=== PATIENT | female | born 1945 | race Caucasian/White ===

== ENCOUNTER → 2019-12-15 | Outpatient (CLI) | payer OTHER | LOC: SJCVCIMAG 09:47 | DX: I65.23 Occlusion and stenosis of bilateral carotid arteries (principal); I25.10 Atherosclerotic heart disease of native coronary artery without angina pectoris; I10 Essential (primary) hypertension; E78.5 Hyperlipidemia, unspecified; Z86.73 Personal history of transient ischemic attack (TIA), and cerebral infarction without residual deficits ==

== ENCOUNTER → 2020-03-10 | Outpatient (CLI) | payer OTHER ==
[~2020-03-10] MED LIST: ASA81BEC PO; LIPITOR40 MG PO; LISINOPRIL2.5 MG PO; PLAVIX 75 MG TA75 MG PO; VITAMIN D350 MC2 PO; ZETIA10 MG PO
== END ==
LOC: SJCVC 10:09
DX: R07.9 Chest pain, unspecified (principal); I25.118 Atherosclerotic heart disease of native coronary artery with other forms of angina pectoris; I10 Essential (primary) hypertension; E78.5 Hyperlipidemia, unspecified; I63.9 Cerebral infarction, unspecified; I65.23 Occlusion and stenosis of bilateral carotid arteries; I35.8 Other nonrheumatic aortic valve disorders; R53.83 Other fatigue; R68.89 Other general symptoms and signs; Z82.49 Family history of ischemic heart disease and other diseases of the circulatory system; Z79.82 Long term (current) use of aspirin; Z79.899 Other long term (current) drug therapy

== ENCOUNTER 2020-03-11 13:00 | Inpatient (IN) | payer OTHER ==
[~2020-03-11] VITALS: Ht 160 cm; Wt 62.9 kg
[2020-03-11 07:40] VITALS: BP 139/64
[2020-03-11 07:42] LABS: HEMATOCRIT 37.6 % (37.0-47.0); HEMOGLOBIN 12.8 gm/dL (12.0-15.0); MCHC 34.1 g/dL (28.0-37.0); MCV 87.9 fL (80.0-100.0); RBC 4.28 mil/uL (4.20-5.00); RDW 12.9 % (10.5-14.5); WBC 6.4 thou/uL (4.0-11.0)
[2020-03-11 07:54] LABS: CALCIUM 8.6 mg/dL (8.5-10.1); CREATININE 0.9 mg/dL (0.6-1.0); POTASSIUM 3.9 mmol/L (3.5-5.1)
--- NOTE | 2020-03-11 08:23 | EKG ---
[facility] [place] [address] ELECTROCARDIOGRAM REPORT Name: YANCY,JAKUB Room #: REG [facility]..#: [id number] Admission: 03/11/20 Attend Phys: Chris Packer MD, Discharge: Date of : 47 Report #: [id number] THIS REPORT FOR: cc: Kale Watt MD, Austin T. MD Couchonnal, Luis F. MD ~ THIS REPORT FOR: //name// [facility] Test Date: 2020-03-11 Test Time: 07:24:34 Pat Name: JAKUB HAINES Department: Room: Gender: Vault Person: J : 1945 Requested By: Chris Packer Order Number: [id number] MD: Alfredo Robert Measurements Intervals [place] Rate: 75 P: 39 NM: 146 QRS: 12 QRSD: 86 T: 81 QT: 383 QTc: 428 Interpretive Statements Sinus rhythm No previous ECG available for comparison Electronically Signed On 03-11-2020 8:21:23 CDT by Alfredo Robert [email or web address] <ELECTRONICALLY SIGNED> By: Alfredo Robert MD 03/11/20 0821 3 3 MD HERB[facility] [place]
--- NOTE | 2020-03-11 11:46 | NUR ---
SHALA HERE TO SPEAK TO PT ABOUT SURGICAL PROCEDURE WITH DR JEREZ. AFTER DISCUSSION, PT AND S.O. QUESTION WHY PT SHOULD BE ADMITTED PRIOR TO SPEAKING WITH DR JEREZ. DR JEREZ IN SURGERY UNTIL MID AFTERNOON. PT WANTS TO STAY IN CV HOLDING UNTIL THEY SPEAK WITH DR JEREZ. WILL HOLD PT HERE UNTIL THEN.
--- NOTE | 2020-03-11 12:24 | 2DMMODE ---
[facility] [place] [address] 2 D/M-MODE ECHOCARDIOGRAM Name: JAKUB HAINES Room #: REG VICKIE PrinceJosi#: [id number] Admission: 03/11/20 Attend Phys: Chris Packer MD, Discharge: Date of : 47 Report #: [id number] THIS REPORT FOR: cc: Kale Watt MD, Austin T. MD Lundgren, Craig H. MD [facility] ~ APPROVED REPORT Study performed: 03/11/2020 11:06:48 EXAM: Comprehensive 2D, Doppler, and color-flow Echocardiogram Patient Location: Out-Patient Room #: CVL Status: routine BSA: 1.61 HR: 67 bpm BP: 139/64 mmHg Rhythm: NSR Other Information Study Quality: Adequate Technically limited study due to flat on back post angiogram/lung artifact. Indications Pre Op CABG, CAD. 2D Dimensions RVDd: 32.10 mm IVSd: 10.54 (7-11mm) LVOT Diam: 19.70 (18-24mm) LVDd: 41.67 mm PWd: 10.82 (7-11mm) Ascending Ao: 32.10 (22-36mm) LVDs: 25.55 (25-40mm) Aortic Root: 29.08 mm Volumes Left Atrial Volume (Systole) Single Plane 4CH: 36.08 mL Single Plane 2CH: 41.22 mL LA ESV Index: 26.00 mL/m2 Aortic Valve AoV Peak Nicola.: 2.38 m/s AO Peak Gr.: 10.06 mmHg LVOT Max P.44 mmHg AO Mean Gr.: 10.73 mmHg [facility] [address] [place] [address] 2 D/M-MODE ECHOCARDIOGRAM Name: JAKUB HAINES [facility]: [facility] [id number] Admission: 03/11/20 Attend Phys: Chris Packer, Discharge: Date of : 47 Report #: [id number] AO V2 Mean: 1.52 m/s LVOT Max V: 0.93 m/s AO V2 VTI: 58.45 cm LILLIAN Vmax: 1.19 cm2 Mitral Valve E/A Ratio: 0.9 MV Decel. Time: 243.57 ms MV E Max Nicola.: 0.86 m/s MV A Nicola.: 0.99 m/s MV PHT: 70.64 ms IVRT: 76.12 ms Pulmonary Valve PV Peak Nicola.: 0.72 m/s PV Peak Gr.: 2.09 mmHg Pulmonary Vein P Vein S: 0.65 m/s P Vein A: 0.41 m/s P Vein D: 0.43 m/s P Vein A Dur.: 100.3 msec P Vein S/D Ratio: 1.51 Tricuspid Valve TR Peak Nicola.: 2.60 m/s RAP Estimate: 5.00 mmHg TR Peak Gr.: 27.12 mmHg PA Pressure: 32.00 mmHg Left Ventricle The left ventricle is normal size. There is normal LV segmental wall motion. Borderline concentric left ventricular hypertrophy. The left ventricular systolic function is normal. The left ventricular ejection fraction is within the normal range. LVEF is 60-65%. Mild diastolic dysfunction is present (impaired relaxation pattern). Right Ventricle The right ventricle is normal size. The right ventricular systolic function is normal. Atria The left atrium size is normal. The right atrium size is normal. Aortic Valve Aortic valve leaflets are moderately thickened and calcified, trileaflet. Mild to moderate aortic stenosis. Trace aortic regurgitation. Calculated aortic valve area is 1.2 cm2 with maximum pressure gradient of 23 mmHg and mean pressure gradient of [address] [address] 2 D/M-MODE ECHOCARDIOGRAM Name: JAKUB HAINES Room #: REG CL VictorinoJosiElissaJosi#: [id number] Admission: 03/11/20 Attend Phys: Chris Packer, Discharge: Date of : 47 Report #: [id number] mmHg. Mitral Valve Mitral valve leaflets are mildly thickened and calcified. Mild mitral annular calcification. Trace to mild mitral regurgitation. No evidence of mitral valve stenosis. Tricuspid Valve The tricuspid valve is normal in structure. Trace to mild tricuspid regurgitation. Estimated PAP is 30-35mmHg. Pulmonic Valve The pulmonary valve is normal in structure. Trace pulmonic regurgitation. Great Vessels The aortic root is normal in size. The ascending aorta is normal in size. IVC is normal in size and collapses >50% with inspiration. Pericardium There is no pericardial effusion. <Conclusion> The left ventricular systolic function is normal. There is normal LV segmental wall motion. LVEF is 60-65%. Mild diastolic dysfunction Aortic valve leaflets are moderately thickened, calcified, trileaflet. Mild to moderate aortic stenosis. Trace aortic regurgitation. Calculated aortic valve area is 1.2 cm2 (Peak gradient of 23 mmHg, mean gradient of 11 mmHg). Mitral valve leaflets are mildly thickened and calcified. Mild mitral annular calcification. Trace to mild mitral regurgitation. Trace to mild tricuspid regurgitation. Estimated pulmonary artery pressure of 30-35mmHg. There is no pericardial effusion. <ELECTRONICALLY SIGNED> By: Walt Caba MD, [facility] 03/11/20 1222 122 122 Walt Caba MD, FACC /INF
[2020-03-11 14:43] LABS: BASOPHILS 0.2 % (0.0-2.0); EOSINOPHILS 0.8 % (0.0-3.0); HEMATOCRIT 39.7 % (37.0-47.0); HEMOGLOBIN 13.4 gm/dL (12.0-15.0); LYMPHOCYTES 14.7 % (24.0-44.0); MCH 29.9 pg (26.0-34.0); MCHC 33.7 g/dL (28.0-37.0); MCV 88.8 fL (80.0-100.0); MONOCYTES 10.7 % (1.0-8.0); PLATELET COUNT 286 thou/uL (150-400); POLYS 73.6 % (36.0-66.0); RBC 4.48 mil/uL (4.20-5.00); RDW 12.9 % (10.5-14.5); WBC 8.2 thou/uL (4.0-11.0)
[2020-03-11 14:56] LABS: APTT 28.7 Seconds (24.5-32.8); PROTIME 10.4 Seconds (9.3-11.4)
[2020-03-11 15:58] LABS: URINE BILIRUBIN NEGATIVE (Negative); URINE BLOOD NEGATIVE (Negative); URINE CLARITY CLEAR; URINE COLOR YELLOW; URINE GLUCOSE-RANDOM* NEGATIVE (Negative); URINE KETONES NEGATIVE (Negative); URINE LEUKOCYTES-REFLEX NEGATIVE (Negative); URINE NITRITE-REFLEX NEGATIVE (Negative); URINE PROTEIN (DIPSTICK) NEGATIVE (Negative); URINE UROBILINOGEN 0.2 E.U./dl (0.2-1.0)
[2020-03-11 17:00] VITALS: BP 166/70
--- NOTE | 2020-03-11 17:34 | NUR ---
PATIENT ADMITTED POST CATH AT 1630 - HEMOSTATIS 0930 LEG IMMOBILIZATION TIME COMPLETED. ALERT X4 FROM HOME WITH , DENIES SOB, DENIES CHEST PAIN, RIGHT GROIN SIGHT C/D/I NO INTERVENTION WITH CARDIAC CATH. DR JEREZ ROUNDED BEDSIDE WI PLANS FOR A CABG ON SATURDAY. ADMISSION ASSEMENT, HISTORY, AND EDUCATION. COMPLETED. ORRIENTED TO ROOM. CALL LIGHT AND PERSONAL ITEMS IN REACH. PT UP AB LISBET IN ROOM
--- NOTE | 2020-03-11 19:12 | HC ---
[facility] [address] CONSULTATION Name: JAKUB HAINES Room #: 200-I [facility] VICKIE PrinceJosi#: [id number] Admission: 03/11/20 Attend Phys: Chris Packer MD, Discharge: Date of : 46 Report #: [id number] THIS REPORT FOR: cc: Kale Watt MD, Austin T. MD Forman, John M. MD ~ CC: Kale Packer DATE OF SERVICE: 03/11/2020 We were asked by Dr. Packer to see the patient. HISTORY OF PRESENT ILLNESS: The patient is a 74-year-old with coronary artery disease. The patient states that her symptoms began in October with substernal discomfort. The patient originally thought that this was indigestion and she treated this with map clerk exercise prior to eating. Symptoms seem to jama for a while and then worsened, now the patient has angina with low levels of exertion. Cardiac catheterization today demonstrates a 90% proximal LAD stenosis. This does not seem to involve the circumflex and the ramus. There is also an 80% right ostial stenosis. Left ventricular function is satisfactory. PAST HISTORY: Significant for hypertension, elevated cholesterol. The patient denies diabetes. The patient states that she had a stroke in 2012 and she has taken Plavix ever since. There was no significant residual of stroke and it is not clear what caused it. Stroke was characterized by transient aphasia. Today, carotid duplex evaluation demonstrates 40-50% right carotid stenosis and 50-60% left carotid stenosis. ALLERGIES: The patient describes vomiting with morphine. MEDICATIONS: At home includes Plavix, atorvastatin, lisinopril, aspirin, vitamin D. SOCIAL HISTORY: The patient is , nonsmoker. REVIEW OF SYSTEMS: CONSTITUTIONAL: No fever, chills, weight loss. EYES: No vision change. HEENT: No headache, vertigo, nasal discharge. RESPIRATORY: Shortness of breath on exertion, no cough. [facility] [address] [place] [address] CONSULTATION Name: JAKUB HAINES Room #: 200-I [facility].#: [id number] Admission: 03/11/20 Attend Phys: Chris Packer MD, Discharge: Date of : 46 Report #: [id number] CARDIAC: Chest pain on exertion that radiates to the arm. SKIN: No rash or infection. ENDOCRINE: No goiter, no tremor. GASTROINTESTINAL: No nausea, vomiting, diarrhea. GENITOURINARY: No urgency, frequency, or blood. NEUROLOGIC: No new motor or sensory symptoms. PSYCHIATRIC: No depression, anxiety, hallucinations. MUSCULOSKELETAL: Scattered joint pain and swelling with stiffness. IMMUNOLOGIC: No lupoid rash, no rheumatoid arthritides. PHYSICAL EXAMINATION: GENERAL: The patient is lying in bed after her cardiac catheterization in apparent comfort. VITAL SIGNS: Blood pressure 125/71, heart rate 76, respiratory rate 13, afebrile. HEENT: No scleral icterus, no arcus. NECK: Bilateral cervical bruits. HEART: Rhythm regular with aortic systolic murmur radiating to the neck. ABDOMEN: Soft. No mass. No tenderness. EXTREMITIES: 2+ pulses. No clubbing, cyanosis or edema. No obvious saphenous vein problems. NEUROLOGIC: No obvious motor or sensory dysfunction. MUSCULOSKELETAL: No bone or joint asymmetry or deformity. SKIN: No rash or infection. PSYCHIATRIC: Shows insight into problem. Oriented x 3, pleasant affect. IMPRESSION: The patient has a threatening coronary anatomy with high-grade proximal LAD and right coronary stenoses. There is moderate aortic stenosis present. The risks and details of coronary bypass surgery were discussed. These include but are not limited to bleeding, infection, anesthesia risks, heart and lung problems, stroke and . Options and alternatives were reviewed. I also discussed the case with Dr. Packer. It is a privilege to participate in this challenging patient's care. Thank you for the consult. <ELECTRONICALLY SIGNED> By: Perry Addison MD 03/11/20 1912 1544 1609 Perry Addison MD /nt
[2020-03-11 21:59] VITALS: BP 145/65
[2020-03-12 00:40] VITALS: BP 136/60
[2020-03-12 01:08] LABS: GLYCOHEMOGLOBIN (HGB A1C) 5.5 % (4.8-5.6)
[2020-03-12 01:10] LABS: ALBUMIN 3.2 g/dL (3.4-5.0); CALCIUM 8.5 mg/dL (8.5-10.1); CREATININE 0.9 mg/dL (0.6-1.0); TOTAL BILIRUBIN 0.4 mg/dL (<0.1-1.0); TOTAL PROTEIN 6.3 g/dL (6.4-8.2)
[2020-03-12 04:29] VITALS: BP 147/84
--- NOTE | 2020-03-12 07:26 | NUR ---
ASSESSMENT DOCUMENTED.PT BEEN RESTING IN NO ACUTE DISTRESS.S/P CARDIAC UMESH.RIGHT GROIN W/O HEMATOMA,DRESSING CDI.PT DENIES CHEST PAIN.ON HEPARIN AND NITRO DRIP PER ORDERS.VSS.POC IS TO HAVE CABG ON SATURDAY.WILL CONTINUE TO MONITOR PER POC.
[2020-03-12 08:00] VITALS: BP 134/67
[2020-03-12 17:00] VITALS: BP 141/72
[2020-03-12 18:57] VITALS: BP 125/62
--- NOTE | 2020-03-12 19:38 | NUR ---
ASSESSMENT CHARTED. PT ALERT AND ORIENTED. VSS. DENIED HAVING CHEST PAIN. HEPARIN AND NIRTO DRIP INFUSING ORDERED. NO RESPIRATORY OR CARDIAC DISTRESS NOTED. WILL CONTINUE TO MONITOR.
[2020-03-12 23:40] VITALS: BP 129/75
[2020-03-13 04:51] VITALS: BP 122/66
--- NOTE | 2020-03-13 04:55 | NUR ---
ASSESSMENT DOCUMENTED.PT BEEN RESTING IN NO ACUTE DISTRESS.A/OX4.VSS.DENIES CHEST PAIN.REMAINS ON HEPARIN AND NITR O DRIP.PT DENIES ANY NEEDS AT THIS TIME.POC IS TO HAVE CABG ON SATURDAY.
[2020-03-13 09:20] VITALS: BP 114/60
--- NOTE | 2020-03-13 10:50 | CATHLAB ---
[facility] [place] [address] INVASIVE PROCEDURE REPORT Name: JAKUB HAINES Room #: 200-I ADM IN M.R.#: [id number] Admission: 03/12/20 Attend Phys: Chris Packer MD, Discharge: Date of : 46 Report #: [id number] THIS REPORT FOR: cc: Kale Watt MD, Austin T. MD Mancuso, Gerald M. MD [facility] ~ APPROVED REPORT Study performed: 03/11/2020 07:46:27 Patient Details Patient Status: Out-Patient Room #: The patient is a 74 year-old female Event Personnel Chris Packer Reed Man, Tierney Velez RN RN, Joshua Crisostomo RN RN, Leticia Chinchilla RTR, MARIAA Mayer, Fanta Sykes Monitor Procedures Performed Art Access - R femoral artery* Left Heart Cath w/or w/o Coronaries [id number] [facility] Aortogram Abdominal Peripheral Angio 657268 Renal Bilateral Peripheral Angiography [id number] CVRENALBIL 39619 Initial Mod Sed Same Phys/QHP Gr5y 683910 65047 Mod Sed Same Phys/QHP Ea 316925 Indication Chest pain Procedure Narrative The Right Groin^ was infiltrated with 1% Lidocaine subcutaneous anesthesia. A PINNACLE 6FR Sheath #[id number] sheath was inserted into the RFA 6F^. Coronary angiography was performed using coronary diagnostic catheters. The right coronary system was accessed and visualized with a JR4 catheter. The left coronary system was accessed and visualized with a JL4 catheter. The left ventricle was accessed and visualized with a STR PIG catheter. Left ventriculogram was performed in 30 degree projection. There was no hematoma. Intraoperative Conscious Sedation Sedation start time: 852 Case end Time: 944 Fentanyl 50 mcg Versed 1 mg [facility] [place] [address] INVASIVE PROCEDURE REPORT Name: JAKUB HAINES Room #: 200-I [facility].#: [id number] Admission: 03/12/20 Attend Phys: Chris Packer, Discharge: Date of : 46 Report #: [id number] Fluoro Time: 3.12 minutes Dose: DAP 2149.40 cGycm2 265 mGy Contrast Type and Amount: Omnipaque 125 ml Hemodynamics The aortic pressure is 129/55 mmHg with a mean of 74 mmHg. The left ventricular pressure is 157/6 mmHg with a mean of mmHg. The left ventricular end diastolic pressure is 22 mmHg. Conclusion 1. Normal left ventricular size and systolic function EF 60% #2 abdominal aortogram is mildly ectatic there is no aneurysm. #3 selective injection bilateral renal arteries revealed ostial lesion of the left renal of 40% range without dampening of the catheter right renal artery mildly diseased. #4 eccentric calcified left main moderately disease giving rise to LAD and circumflex. #4 complex subtotal ostial LAD off of left main with disease extending into the left main proximally calcified also a proximal eccentric lesion of the LAD of 80% the distal two thirds is fairly well-preserved vessel extends around the apex. #5 circumflex OM is nondominant smaller in caliber but no occlusive disease is noted the first OM appears to be more of a ramus intermedius which is preserved #6 dominant right coronary artery there is a high-grade ostial lesion of at least 80% with significant dampening of the catheter with engagement. This is otherwise a dominant and well-preserved vessel giving rise to PDA SEBASTIAN Recommendations and plan: Continue aggressive risk factor modification patient had chest pain post procedure. Relieved with sublingual and IV nitro and IV beta-asaf. No acute EKG changes. This is complex high-grade disease involving the left main LAD. Patient is transferred hemodynamically stable and currently pain-free to CCU. CV surgical consultation revascularization by bypass would be her best alternative for the left main LAD system as well as the ostial RCA stenosis <ELECTRONICALLY SIGNED> By: Chris Packer MD, FACC 03/13/20 1048 1048 1048 Chris Packer MD, FACC /INF
[2020-03-13 16:30] VITALS: BP 112/62
--- NOTE | 2020-03-13 18:30 | NUR ---
ASSESSMENT CHARTED. PT ALERT AND ORIENTED. VSS. DENIED HAVING PAIN OR DISCOMFORT. NITRO AND HEPARIN DRIP INFUSING. SCHEDULED FOR OPEN HEART IN AM. SR ON TELE. NO CONCERNS AT THIS TIME. WILL CONTINUE TO MONITOR.
[2020-03-13 19:58] VITALS: BP 122/59
[2020-03-14] VITALS (38 sets, daily range): BP systolic 84–126; BP diastolic 39–59
[2020-03-14 04:48] LABS: HEMATOCRIT 33.7 % (37.0-47.0); HEMOGLOBIN 11.6 gm/dL (12.0-15.0); MCH 30.3 pg (26.0-34.0); MCHC 34.5 g/dL (28.0-37.0); MCV 87.7 fL (80.0-100.0); RBC 3.84 mil/uL (4.20-5.00); WBC 7.3 thou/uL (4.0-11.0)
--- NOTE | 2020-03-14 04:55 | NUR ---
ASSESSMENT DOCUMENTED.PT BEEN RESTING IN NO ACUTE DISTRESS.A/OX4.VSS.PT SCHEDULED FOR CABG THIS AM.PRE-OPE CHECKLIST INTIATED WELL PREP.PT REQUESTED NOT TO SIGN THE CONSENT FORMS SINCE SHE HAS SOME QUESTIONS FOR THE DOCTOR SOLITARIO/SHALA.DENIES ANY OTHER NEEDS AT THIS TIME.NSR ON MONITOR.NO OTHER CONCERNS VOICED AT THIS TIME.WILL CONTINUES TO MONITOR PER POC.
--- NOTE | 2020-03-14 06:51 | NUR ---
PT LEFT FOR OR.REPORT GIVEN TO PUBLIC HEALTH NUTRITIONIST.NO CONCERNS VOICED AT THIS TIME.
--- NOTE | 2020-03-14 07:50 | EKG ---
[facility] Jimena [place] [facility] [place] [address] ELECTROCARDIOGRAM REPORT Name: JAKUB HAINES Room #: 200-I ADM IN M.R.#: [id number] Admission: 03/12/20 Attend Phys: Chris Packer MD, Discharge: Date of : 47 Report #: [id number] THIS REPORT FOR: cc: Kale Watt MD, Austin T. MD Lundgren, Craig H. 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
--- NOTE | 2020-03-14 07:56 | EKG ---
[facility] [place] [address] ELECTROCARDIOGRAM REPORT Name: JAKUB HAINES Room #: 200-I ADM IN M.R.#: [id number] Admission: 03/12/20 Attend Phys: Chris Packer MD, Discharge: Date of : 47 Report #: [id number] THIS REPORT FOR: cc: Kale Watt MD, Austin T. 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: Elissa VERONICA : 1945 Requested By: Trisha Rivera Order Number: [id number] MD: Walt Caba Measurements Intervals [place] Rate: 75 P: 37 HI: 146 QRS: 13 QRSD: 79 T: 74 QT: 381 QTc: 426 Interpretive Statements Sinus rhythm Poor R wave progression Compared to ECG 03/11/2020 07:24:34 No significant change was found Electronically Signed On 03-14-2020 7:54:29 CDT by Walt Caba [email or web address] <ELECTRONICALLY SIGNED> By: Walt Caba MD, [facility] 03/14/20 0754 0741 0741 Walt Caba MD, [facility] /EPI
[2020-03-14 11:33] LABS: MCH 30.4 pg (26.0-34.0)
[2020-03-14 11:42] LABS: MCV 89.1 fL (80.0-100.0); RBC 2.22 mil/uL (4.20-5.00); RDW 12.7 % (10.5-14.5); WBC 9.6 thou/uL (4.0-11.0)
[2020-03-14 11:45] LABS: HEMATOCRIT 19.8 % (37.0-47.0)
[2020-03-14 11:46] LABS: HEMOGLOBIN 6.8 gm/dL (12.0-15.0)
[2020-03-14 11:54] LABS: FIBRINOGEN 181.5 mg/dL (210-360); INR 1.5; PROTIME 15.7 Seconds (9.3-11.4)
[2020-03-14 11:56] LABS: APTT 33.1 Seconds (24.5-32.8)
[2020-03-14 12:09] LABS: POC BE -1 mmol/L (-2.0 to +3.0); POC GLUCOSE 130 mg/dL (70-99); POC HCO3 23.9 mmol/L (22.0-26.0); POC HEMOGLOBIN 6.5 g/dL (12.0-15.0); POC POTASSIUM 4.1 mmol/L (3.5-5.1); POC SODIUM 137 mmol/L (136-145); POC pCO2 37.4 mmHg (35.0-45.0); POC pH 7.414 (7.360-7.450)
[2020-03-14 12:09] LABS: POC BE 4 mmol/L (-2.0 to +3.0); POC CA IONIZED 4.9 mg/dL (4.5-5.3); POC GLUCOSE 111 mg/dL (70-99); POC HCO3 26.9 mmol/L (22.0-26.0); POC HEMOGLOBIN 10.2 g/dL (12.0-15.0); POC POTASSIUM 4.1 mmol/L (3.5-5.1); POC SODIUM 138 mmol/L (136-145); POC pCO2 34.8 mmHg (35.0-45.0); POC pH 7.496 (7.360-7.450)
[2020-03-14 12:09] LABS: POC BE 1 mmol/L (-2.0 to +3.0); POC CA IONIZED 4.7 mg/dL (4.5-5.3); POC GLUCOSE 107 mg/dL (70-99); POC HCO3 24.9 mmol/L (22.0-26.0); POC HEMOGLOBIN 9.2 g/dL (12.0-15.0); POC POTASSIUM 3.8 mmol/L (3.5-5.1); POC SODIUM 138 mmol/L (136-145); POC pCO2 33.8 mmHg (35.0-45.0); POC pH 7.475 (7.360-7.450)
[2020-03-14 12:10] LABS: POC BE 0 mmol/L (-2.0 to +3.0); POC GLUCOSE 105 mg/dL (70-99); POC HCO3 24.6 mmol/L (22.0-26.0); POC HEMOGLOBIN 7.1 g/dL (12.0-15.0); POC POTASSIUM 4.2 mmol/L (3.5-5.1); POC SODIUM 138 mmol/L (136-145); POC pCO2 36.9 mmHg (35.0-45.0); POC pH 7.432 (7.360-7.450)
[2020-03-14 12:10] LABS: POC BE -2 mmol/L (-2.0 to +3.0); POC CA IONIZED 4.4 mg/dL (4.5-5.3); POC GLUCOSE 120 mg/dL (70-99); POC HCO3 23.8 mmol/L (22.0-26.0); POC HEMOGLOBIN 6.1 g/dL (12.0-15.0); POC SODIUM 134 mmol/L (136-145); POC pCO2 47.7 mmHg (35.0-45.0); POC pH 7.307 (7.360-7.450)
[2020-03-14 12:10] LABS: POC BE -1 mmol/L (-2.0 to +3.0); POC CA IONIZED 4.3 mg/dL (4.5-5.3); POC GLUCOSE 140 mg/dL (70-99); POC HCO3 24.1 mmol/L (22.0-26.0); POC HEMOGLOBIN 6.5 g/dL (12.0-15.0); POC POTASSIUM 4.5 mmol/L (3.5-5.1); POC SODIUM 137 mmol/L (136-145); POC pCO2 42.5 mmHg (35.0-45.0); POC pH 7.361 (7.360-7.450)
[2020-03-14 12:10] LABS: POC BE -2 mmol/L (-2.0 to +3.0); POC CA IONIZED 4.6 mg/dL (4.5-5.3); POC GLUCOSE 121 mg/dL (70-99); POC HCO3 22.2 mmol/L (22.0-26.0); POC HEMOGLOBIN 7.5 g/dL (12.0-15.0); POC POTASSIUM 3.8 mmol/L (3.5-5.1); POC SODIUM 140 mmol/L (136-145); POC pCO2 32.9 mmHg (35.0-45.0); POC pH 7.437 (7.360-7.450)
[2020-03-14 13:07] LABS: HEMATOCRIT 26.7 % (37.0-47.0); MCH 29.6 pg (26.0-34.0); MCHC 33.6 g/dL (28.0-37.0); MCV 88.1 fL (80.0-100.0); RBC 3.03 mil/uL (4.20-5.00); RDW 12.9 % (10.5-14.5); WBC 12.5 thou/uL (4.0-11.0)
[2020-03-14 13:16] LABS: BE(vivo) -4.6 mmol/L (-2 to +3); HCO3 18.9 mmol/L (22.0-26.0); PCO2 29.5 mmHg (35.0-45.0); PO2 202.4 mmHg (80.0-100.0); pH 7.425 (7.360-7.450); sO2 99.4 % (92.0-98.0)
[2020-03-14 13:18] LABS: CALCIUM 7.6 mg/dL (8.5-10.1); CREATININE 0.9 mg/dL (0.6-1.0); MAGNESIUM 2.2 mg/dL (1.8-2.4)
[2020-03-14 13:22] LABS: APTT 31.8 Seconds (24.5-32.8); INR 1.2; PROTIME 12.6 Seconds (9.3-11.4)
--- NOTE | 2020-03-14 13:49 | NUR ---
RD consult received for diet instruction. CABG today, 03/14. Will address nutrition education needs once stable and out of ICU.
--- NOTE | 2020-03-14 15:01 | EKG ---
[facility] [place] [address] ELECTROCARDIOGRAM REPORT Name: JAKUB HAINES Room #: 248-P ADM IN M.R.#: [id number] Admission: 03/12/20 Attend Phys: Chris Packer MD, Discharge: Date of : 47 Report #: [id number] THIS REPORT FOR: cc: Kale Watt MD, Austin T. MD Couchonnal, Luis F. MD ~ THIS REPORT FOR: //name// [facility] Test Date: 2020-03-14 Test Time: 13:55:18 Pat Name: JAKUB HAINES Department: Room: 248 P Gender: F Clinic Licensed Practical Nurse: Victorino WEAVER : 1945 Requested By: Esteban Collado Order Number: [id number] MD: Alfredo Robert Measurements Intervals [place] Rate: 95 P: 79 [place]: 162 QRS: 35 QRSD: 79 T: 52 QT: 378 QTc: 475 Interpretive Statements Sinus rhythm Abnormal R-wave progression, early transition Minimal ST depression, anterolateral leads Compared to ECG 03/12/2020 07:41:15 Electronically Signed On 03-14-2020 14:59:51 CDT by Alfredo Robert [email or web address] <ELECTRONICALLY SIGNED> By: Alfredo Robert MD 03/14/20 1459 1355 1355 Alfredo Robert MD /EPI
--- NOTE | 2020-03-14 16:44 | NUR ---
PATIENT ARRIVED INTO ICU ROOM 248 AT 1245 POST CABG X2. ACCOMPANIED BY OR STAFF, ANESTHESIOLOGIST AND SURGEON. ATTACHED TO HEALTHCARE ECONOMICS CONSULTANT AND VIGILANT MONITOR, CT DRAINAGE AND URINE OUTPUT NOTED. PLEURAVAC TO SUCTION WITH SMALL LEAK NOTED. BEIR HUGGER APPLIED. PROPOFOL INFUSING FOR VENT MANAGEMENT AT 20 MCG/KG/MIN.
[2020-03-14 16:53] LABS: BE(vivo) -5.4 mmol/L (-2 to +3); HCO3 19.1 mmol/L (22.0-26.0); PCO2 33.4 mmHg (35.0-45.0); PO2 130.5 mmHg (80.0-100.0); pH 7.375 (7.360-7.450); sO2 98.6 % (92.0-98.0)
--- NOTE | 2020-03-14 17:15 | NUR ---
PROPOFAL WEANED OFF AT 1535. PATIENT AWAKE AND RESPONSIVE AND FOLLOWING SIMPLE COMMANDS APPROPIATELY AT 1600. PLACED ON CPAP 40% AT 1610. ABG'S AND WEANING PARAMATERS CALLED TO DR JEREZ AT 1705, PATIENT HAD STABLE VS AND MONITOR SHOWING NSR. PATIENT EXTUBATED TO 40% FS AT 1710.
[2020-03-14 19:04] LABS: BE(vivo) -5.3 mmol/L (-2 to +3); HCO3 19.1 mmol/L (22.0-26.0); sO2 99.1 % (92.0-98.0)
--- NOTE | 2020-03-14 19:20 | NUR ---
Patient progressing towards outcome goals as evident by. Alert and oriented, following commands. Extubated with an O2 sat 99 to 100% with reg even resp rate. Nausea relived with Zofran. Urine output greater than 50 ml/hr. Chest tube drainage total of 400 ml. Platelets and FFP infused per order. Hemocrit and serum potassium are stable and within paramaters. Monitor NSR, and hemodynamically stable with CI greater than 2.3. Spoke with significate other at 1620 and 1825 and updated him, spoke with patient to encourage her.
[2020-03-15] VITALS (12 sets, daily range): BP systolic 99–126; BP diastolic 43–51
[2020-03-15 05:17] LABS: HEMATOCRIT 25.4 % (37.0-47.0); HEMOGLOBIN 8.6 gm/dL (12.0-15.0); MCH 30.2 pg (26.0-34.0); RBC 2.85 mil/uL (4.20-5.00); WBC 11.6 thou/uL (4.0-11.0)
[2020-03-15 05:21] LABS: CALCIUM 8.1 mg/dL (8.5-10.1); MAGNESIUM 2.4 mg/dL (1.8-2.4); POTASSIUM 3.8 mmol/L (3.5-5.1)
--- NOTE | 2020-03-15 07:00 | NUR ---
Pt assisted to the recliner, she denied any nausea, and moved well this morning. Report was given to on-coming nurse, and swan was removed by her, for dislodgement noted on CXR. Hemodynamics have been within normal limits, cardene had been off since 309, sats maintained during transfer, and no ectopy was noted. She is on room air, has been using her IS well, she is clear, (after coughing) and is diminished to bases. Mediastinal chest tube and rt radial artline sites were re-dressed. Garnett output had been slowing, IV albumin was given, with a adequate increase in quantity. Pt has been taking PO fluids well, bowel sounds are hypoactive and LBM was 03/13/20. Pt is slowing prgressing to POC goals.
--- NOTE | 2020-03-15 07:59 | EKG ---
[facility] [place] [address] ELECTROCARDIOGRAM REPORT Name: JAKUB HAINES Room #: 248-P ADM IN M.R.#: [id number] Admission: 03/12/20 Attend Phys: Chris Packer MD, Discharge: Date of : 47 Report #: [id number] THIS REPORT FOR: cc: Kale Watt MD, Austin T. 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 VERONICA : 1945 Requested By: Esteban Collado Order Number: [id number] MD: Walt Caba Measurements Intervals [place] Rate: 75 P: 34 RI: 140 QRS: 8 QRSD: 73 T: 30 QT: 464 QTc: 519 Interpretive Statements Sinus rhythm ST elevation, consider pericarditis Prolonged QT interval Compared to ECG 03/14/2020 13:55:[address] segment elevation is now present Prolonged QT interval now present Electronically Signed On 03-15-2020 7:57:16 CDT by Walt Caba [email or web address] <ELECTRONICALLY SIGNED> By: Walt Caba MD, [facility] 03/15/20 0757 0748 0748 Walt Caba MD, [facility] /EPI
--- NOTE | 2020-03-15 08:57 | O ---
[facility] [place] [address] OPERATIVE REPORT Name: JAKUB HAINES Room #: 248-P ADM IN M.R.#: [id number] Admission: 03/12/20 Attend Phys: Chris Packer MD, Discharge: Date of : 47 Report #: [id number] THIS REPORT FOR: cc: Kale Watt MD, Austin T. MD Forman, John M. MD ~ CC: Kale Packer DATE OF SERVICE: 03/14/2020 PREOPERATIVE DIAGNOSIS: Coronary artery disease. POSTOPERATIVE DIAGNOSIS: Coronary artery disease. OPERATION: Coronary artery bypass x 2 including left internal mammary artery to left anterior descending artery, saphenous vein to right coronary artery. SURGEON: Perry Addison MD [facility] REPRESENTATIVE: ZENY Pineda ANESTHESIA: General. INDICATIONS: The patient is a 74-year-old with coronary artery disease. The patient presents with unstable angina. Catheterization demonstrates a high-grade proximal LAD stenosis and an 80% right ostial lesion. Left ventricular function is satisfactory. FINDINGS AND TECHNIQUE: After general anesthesia was established, saphenous vein was harvested using an endoscopic approach and prepared for use as a conduit. Exposure was obtained through median sternotomy. Left internal mammary artery was harvested from chest wall. Pericardial well was made. Cannulation sutures were placed. Heparin was given. Aorta was cannulated. Right atrium was cannulated. Cardioplegia needle was positioned in the aortic root. Retrograde cardioplegia catheter was placed in coronary sinus. Cardiopulmonary bypass was established. The aorta was cross clamped. Antegrade and retrograde cardioplegia were given. Ice was poured in the pericardial well. The heart was stopped. During electromechanical arrest, the distal anastomoses were performed and end-to-side anastomosis was made between vein and the distal right coronary. Cold cardioplegia was given. Left internal mammary artery was sewn in end-to-side fashion to the left anterior descending artery. Patency of this was checked with the temperature technique. Cold cardioplegia was given. One proximal anastomosis was performed. When this was complete, warm retrograde [facility] [address] [place] [address] OPERATIVE REPORT Name: YANCYJAKUB Room #: 248-P [facility] IN M.R.#: [id number] Admission: 03/12/20 Attend Phys: Chris Packer MD, Discharge: Date of : 47 Report #: [id number] cardioplegia was given followed by warm continuous blood to the coronary sinus. When this infusion was complete, the crossclamp was removed and de-airing maneuvers were performed. The anastomoses were inspected and found to be satisfactory. As the patient warmed, nice cardiac activity resumed, chest tubes and pacing wires were placed, and a marker was placed around the proximal anastomoses. When the patient was warm, she was weaned from cardiopulmonary bypass. Venous cannula was removed. Protamine was given and the aortic cannula was removed. Flows were measured in the bypass grafts. When hemostasis was satisfactory, chest was irrigated with antibiotic solution and closed in the usual fashion. Platelets and plasma were ordered as the patient had been on Plavix and protime was a bit elevated. When hemostasis was satisfactory, chest was irrigated with antibiotic solution and closed in the usual fashion. The patient was taken to the Intensive Care Unit in good condition having tolerated the procedure well. All counts were reported as correct. <ELECTRONICALLY SIGNED> By: Perry Addison MD 03/15/20 0857 [id number] [id number] Perry Addison MD /nt
--- NOTE | 2020-03-15 10:00 | NUR ---
SHALA EVNAS NOTIFIED OF NO URINE OUTPUT THIS HOUR. BLADDER SCANNED PT, 5ML IN BLADDER. ALBUMIN 250ML BOLUS HUNG.
--- NOTE | 2020-03-15 16:15 | NUR ---
ASSESSMENT: CM REVIEWED CHART. PT IS S/P CORONARY ARTERY BYPASS X2. CM REACHED OUT TO PATIENTS SIGNIFICANT OTHER ANANYA TO GATHER MORE INFORMATION. HE REPORTS THEY LIVE IN A HOUSE TOGETHER WITH THREE STEPS WITH A HANDRAIL TO ENTER. HE REPORTS THAT SHE CAN SLEEP ON THE MAIN LEVEL TO AVOID USING ANY STEPS. PT HAS BEEN INDEPENDENT WITH ADLS AND AMBULATION AND DOES NOT HAVE ANY DME AT HOME THAT HE IS AWARE OF. HE DENIES THEY HAVE A GRAB BAR OR SHOWER CHAIR AND REPORTS PT WAS INDEPENDENT WITH ADLS PRIOR TO ADMISSION. PT HAS NOT HAD HH IN THE PAST NOR BEEN TO A SNF. CM DISCUSSSED ROLE. PHYSICAL THERAPY WORKED WITH PT TODAY AND ANTICIPATE SHE WILL PROGRESS WELL WITH THERAPY THAT SHE CAN RETURN HOME WITH NO NEEDS OR POSSIBLE OUTPATIENT. CM WILL CONTINUE TO FOLLOW TO ASSIST NEEDED. CM ALSO ATTEMPTED TO SPEAK WITH WITH PATIENT VIA HER CELL PHONE [phone] BUT NO ANSWER AT THIS TIME.
--- NOTE | 2020-03-15 18:20 | NUR ---
PT PROGRESSING TOWARDS GOALS. URINE OUTPUT REMAINS BORDERLINE, PUSHING FLUIDS. IVF INFUSING. PAIN UNDER CONTROL. SITTING UP IN CHAIR CURRENTLY AND STATES SHE IS VERY COMFORTABLE. APPITITE POOR. MS CHEST TUBES, SWAN AND ALIINE OUT.
[2020-03-16] VITALS (8 sets, daily range): BP systolic 108–133; BP diastolic 36–55
--- NOTE | 2020-03-16 05:53 | NUR ---
Pt rested poorly through the night, she was treated with IV zofran x 3, and at approx 0500, reported her pain at an 8/10. She requested prn pain med, and received two hydrocodone, the pills had to be broken in half and given in applesauce so she could swallow them. Pt has been taking small amounts of food, w/o difficulty, (and denies any previous difficulty) but has become quite anxious when taking meds. Pt has been repositioned, had pillows adjusted and readjusted, and given the bed controls so she can get comfortable, with minimal relief. She is resting well at this time, and normally, would be assisted to the recliner, but this policy writer is trying to let her rest for as long as possible. Garnett catheter has been patent, averaging approx 25-40 ml'hr of urine, IVF's are infusing and will be switched to LR once this bag has infused per MD orders. Pt is progressing toward her POC goals.
[2020-03-16 06:34] LABS: HEMATOCRIT 23.5 % (37.0-47.0); HEMOGLOBIN 7.8 gm/dL (12.0-15.0); MCH 29.5 pg (26.0-34.0); MCHC 33.1 g/dL (28.0-37.0); MCV 89.2 fL (80.0-100.0); RBC 2.64 mil/uL (4.20-5.00); RDW 13.4 % (10.5-14.5); WBC 16.3 thou/uL (4.0-11.0)
[2020-03-16 06:46] LABS: CALCIUM 7.9 mg/dL (8.5-10.1); POTASSIUM 4.3 mmol/L (3.5-5.1)
--- NOTE | 2020-03-16 11:30 | NUR ---
ASSUMED CARE AT 0700 FROM NIGHT NURSE DOMINGA. PATIENT SLEEPING INITIALLY. GALLEGOS DRAINING CLEAR STRAW COLORED URINE 325 ML NOTED. IVF DC'D PER ORDER. PATIENT ASSISTED UP TO CHAIR BY OT FOR BREAKFAST. CARDIAC REHAB IN TO EDUCATE PATIENT, PATIENT AMBULATED OUT INTO THE NURSES STATION APPROXIMATELY 40 FEET AND RETURNED TO THE CHAIR. MONITOR SHOWING NSR. VSS WITH MAP GREATER THAN 65MMHG. DOZING AT INTERVALS. CHEST TUBE DRAINAGE LESS THAN 20 ML/HR. WILL CONTINUE TO MONITOR.
--- NOTE | 2020-03-16 16:34 | NUR ---
GASTON reviewed chart. Pt is POD#2 CABG x 2. Pt is progressing well towards goals for discharge. Pt may transfer to CCU later today. GASTON left voice message for pt on her cell phone ([phone]) to discuss discharge plan. Per therapy, pt should be able to discharge home when medically stable for discharge. GASTON is following to assist as needed with discharge planning.
--- NOTE | 2020-03-16 19:14 | NUR ---
PATIENT PROGRESSING TOWARDS OUTCOME GOALS EVIDENT BY TAKING PO ADEQUATELY EVEN THOUGH C/O NAUSEA WITH ZOFRAN GIVEN WITH SOME RELIEF. GALLEGOS DC'D AND VOIDED 425 CC OF YELLOW URINE. INTRODUCER PULLED IVF WERE DC'D THIS AM. AMBULTED WITH PT AGAIN THIS AFTERNOON AND THEN RETURNED TO BED AND NAPPED. MONITOR NSR, VSS. O2 SAT IN THE LOWER TO MID 90'S. WILL CONTINUE TO MONITOR.
--- NOTE | 2020-03-16 22:39 | NUR ---
PATIENT ALERT AND ORIENTED X4, PAIN MILDLY CONTROLLED WITH MEDICATION. ON ROOM AIR O2 SAT REMAINS ABOVE 90%, PATIENT HAS A PRODUCTIVE COUGH WITH SCANT AMOUNT OF CLEAR REYES SECRETIONS. SINUS RHYTHM ON STEEL FIXER. PACER WIRES CAPPED AND INTACT. CHEST TUBE TO -20 SUCTION. PATIENT VOIDS PER BEDPAN, BATH COMPLETED. REPORT GIVEN TO ONCOMING RN. PATIENT TRANSFERRED TO CCU ROOM 208 AT 2200, NOTIFIED HVAC SERVICE MANAGER (ANANYA JOYNER) ON TRANSFER TO NEW ROOM. NO SIGN OF ACUTE DISTRESS NOTED AT THIS TIME.
[2020-03-17 00:22] VITALS: BP 117/51
[2020-03-17 04:58] LABS: HEMATOCRIT 23.2 % (37.0-47.0); HEMOGLOBIN 7.9 gm/dL (12.0-15.0); MCHC 33.9 g/dL (28.0-37.0); MCV 88.5 fL (80.0-100.0); RBC 2.62 mil/uL (4.20-5.00); RDW 13.3 % (10.5-14.5); WBC 14.6 thou/uL (4.0-11.0)
--- NOTE | 2020-03-17 05:15 | NUR ---
PT WAS A TRANSFER FROM ICU AR 2205. PT IS A CABG PT. CHEST TUBE IN PLACE. NO SIGN OF DISTRESS NOTED IN PT. PT COMPLAINS OF NAUSEA. PT IS STABLE. NO SIGN OF DISTRESS NOTED. PAIN AND NAUSEA MEDICATION ADMINISTERED TO PT. CONTINUE TO MONITOR NO FURTHER NEEDS AT THIS TIME.
[2020-03-17 05:48] VITALS: BP 116/44
[2020-03-17 07:45] VITALS: BP 136/48
[2020-03-17 11:30] VITALS: BP 98/52
--- NOTE | 2020-03-17 13:00 | NUR ---
Assess for length of stay. S/P CABG on 03/11. Pt reports usually eats well but has been nauseated past several days. Wanting light meals and trying to drink the Ensure Enlive supplements. Assisted making dinner selections. Reports 20 lb intentional wt loss over past year following low carb diet. Reviewed heart healthy choices to make for home which include lower fat, lower Na and complex carbs/high fiber, increased fruits/veg for home guidelines. Has Heart Binder with nutrition information as reference. Low nutrition risk
[2020-03-17 13:50] VITALS: BP 11/41; BP 110/41
--- NOTE | 2020-03-17 16:06 | H ---
[facility] [place] [address] HISTORY AND PHYSICAL Name: JAKUB HAINES Room #: 208-P ADM IN M.R.#: [id number] Admission: 03/11/20 Attend Phys: Chris Packer MD, Discharge: Date of : 46 Report #: [id number] THIS REPORT FOR: cc: Kale Watt MD, Austin T. MD Mancuso, Gerald M. MD [facility] ~ CC: Kale Hobbs MD DATE OF SERVICE: 03/11/2020 HISTORY OF PRESENT ILLNESS: The patient is a 74-year-old female who was admitted today for accelerating anginal type symptoms. Had a negative stress echo back in November of this year, but has had worsening symptoms over the last 4-6 weeks of this, but all generally an exertional component. She can walk 9 minutes and then get significant discomfort and admits her anginal as her left arm. She got some of the symptoms back in November, but then it was improved when she did eat prior to her working out, so thought this was GI and the stress echo did not suggest significant ischemia and preserved LV function at that time. She has not had any prior cardiac intervention. She has had a limited stroke in 2012. There is no residual from the stroke, but she has been on baby aspirin and Plavix since that. Her other medications are lisinopril 5, vitamin D, atorvastatin 40 and a baby aspirin. Her LDL was 68, yesterday in the office 69. Her HDL was 68, triglycerides 101. Cholesterol 157. Subsequently, today in the catheterization lab, she reveals very complex ostial LAD disease with a moderate disease in the left main, significant proximal calcification in the LAD, otherwise preserved, except for the ostium, and circumflex is nondominant with mild disease. There is a dominant right, which is well preserved, except there is a 75-80% ostial RCA lesion with significant dampening of the catheter. She had left arm discomfort post procedure, which is her angina, relieved with IV Lopressor and sublingual nitro. I have initiated nitro drip. She is currently pain free. PAST MEDICAL HISTORY: Positive for hypertension, hypercholesterolemia, and now documented coronary artery disease, the prior stroke, , and DJD. SOCIAL HISTORY: She is , 2 children. She is retired minimal social alcohol. Never tobacco user, 1-2 cups of coffee a day, does not walk daily. ALLERGIES: MORPHINE. FAMILY HISTORY: Brother recently had a bypass surgery who is 3 years older. REVIEW OF SYSTEMS: Essentially negative except for stated above with the decreased exercise. [address] [address] HISTORY AND PHYSICAL Name: JAKUB HAINES Room #: 208-P [facility] IN M.R.#: [id number] Admission: 03/11/20 Attend Phys: Chris Packer MD, Discharge: Date of : 46 Report #: [id number] PHYSICAL EXAMINATION: GENERAL: She is pleasant, alert. VITAL SIGNS: Blood pressure was 140/74, pulse was 80s and regular. HEENT: Eyes reveal xanthelasmas. Pharynx is clear. NECK: Shows preserved upstrokes without JVD or bruits. LUNGS: Clear. CARDIOVASCULAR: Regular rate and rhythm, S1, S2. There is a faint systolic ejection murmur upper right sternal border. ABDOMEN: Soft. No HSM or abdominal bruit. EXTREMITIES: Reveal no edema. Distal pulses were intact. NEUROLOGIC: Nonfocal. SKIN: Warm and dry without xanthoma or ulcer. MUSCULOSKELETAL: Generalized arthritic changes. ASSESSMENT: 1. Coronary artery disease/accelerating angina/high grade ostial LAD and RCA stenosis on cardiac catheterization today. 2. Hypertension. 3. Hypercholesterolemia. 4. Aortic valve sclerosis with trivial aortic stenosis. 5. Degenerative joint disease. RECOMMENDATIONS AND PLAN: She is pain free, post-procedure here. This was a complex percutaneous intervention because of the ostial nature of the disease, would have to stent left main, ostial LAD and retrieved the circumflex and then ostial RCA. This patient is best served with revascularization by bypass. Well preserved targets and LV function. Currently, pain free with IV Lopressor and nitro drip. RECOMMENDATIONS AND PLAN: We will admit to CCU. We will hold Plavix. We will initiate beta asaf therapy. Nitro drip low dose 5-10 mcg. CV surgical consultation. Carotid Doppler was performed 3 months ago, mildly diseased less than 40% bilaterally. We will repeat the echo Doppler. History of aortic valve sclerosis, but has not had significant stenosis. We discussed the above with Dr. Addison of CT surgery. She is pain free and hemodynamically stable upon transfer back to CCU bed. Thank you for asking me to assist in the care of this patient. <ELECTRONICALLY SIGNED> By: Chris Packer MD, FACC 03/17/20 1606 0944 1100 Chris Packer MD, FACC /nt
--- NOTE | 2020-03-17 16:41 | NUR ---
Case discussed with the pt care team. Pt is progressing s/p CABG. Chest tube and pacer wires removed today. Pt is working with therapy. Possible dc home this weekend with outpt f/u. Will remain available should dc needs arise.
--- NOTE | 2020-03-17 18:14 | NUR ---
ASSESSMENT DOCUMENTED. VSS. CHEST TUBE AND PACER WIRES D/C AT BEDSIDE BY ZENY KAY. PT REPORTS NAUSEA DURING SHIFT. MANAGED WITH MEDS PER EMAR. NO VOMITTING. PT WALK IN HALLS WITH PT/OT. UP TO CHAIR FOR ALL MEALS. PT STATES PAIN IS IN TOLERABLE RANGE AND REFUSES PAIN MEDICATION. PT HAD LOOSE MEDIUM BM DURING SHIFT. BOWEL SOUNDS HYPERACTIVE. SR ON THE MONITOR. PT RESTING IN CHAIR WITH CALL LIGHT IN REACH. WILL CONTINUE TO MONITOR.
[2020-03-17 19:51] VITALS: BP 129/58
[2020-03-18] VITALS (9 sets, daily range): BP systolic 115–134; BP diastolic 38–65
--- NOTE | 2020-03-18 00:53 | NUR ---
PATIENTS CARES WERE ASSUMED AT SHIFT CHANGE. PATIENT WAS ASSESSED AND MEDS WERE PASSSED. PATIENT IS THE MOST PLEASENT LADY. HOURLY ROUNDING WAS DONE. THE BED IS IN A LOW AND LOCKED POSITION. THE BED ALARM IS ON.
[2020-03-18 04:40] LABS: CALCIUM 8.3 mg/dL (8.5-10.1); CREATININE 0.9 mg/dL (0.6-1.0); POTASSIUM 4.2 mmol/L (3.5-5.1)
[2020-03-18 04:47] LABS: HEMATOCRIT 24.7 % (37.0-47.0); HEMOGLOBIN 8.2 gm/dL (12.0-15.0); MCH 29.8 pg (26.0-34.0); MCHC 33.3 g/dL (28.0-37.0); MCV 89.6 fL (80.0-100.0); RBC 2.75 mil/uL (4.20-5.00); RDW 13.5 % (10.5-14.5); WBC 11.8 thou/uL (4.0-11.0)
--- NOTE | 2020-03-18 07:36 | NUR ---
TOOK OVER CARE OF THE PATIENT FROM ORIGINAL NURSE WHO WENT HOME. PATIENT WAS SLEEPING COMFORTABLY. PATIENT WAS ASSESSED WHEN MORNING VITALS WERE TAKEN. DENIES PAIN. DENIED CURRENT NAUSEA. PATIENT ORDERED HER MORNING BREAKFAST. FALL PRECAUTIONS WERE IN PLACE DURING SHIFT.
[2020-03-18] MEDS ORDERED: PACERONE 200 M200 M1 PO (09:00)
[2020-03-18] MEDS ORDERED: TOPROL XL25 MG PO (09:00)
--- NOTE | 2020-03-18 09:32 | EKG ---
[facility] [place] [address] ELECTROCARDIOGRAM REPORT Name: JAKUB HAINES Room #: 208-P ADM IN M.R.#: [id number] Admission: 03/11/20 Attend Phys: Chris Packer MD, Discharge: Date of : 47 Report #: [id number] THIS REPORT FOR: cc: Kale Watt MD, Austin T. MD Lundgren,Walt Mendes MD [facility] ~ THIS REPORT FOR: //name// [facility] Test Date: 2020-03-18 Test Time: 07:24:42 Pat Name: JAKUB HAINES Department: Room: 208 P Gender: F Biostatistics Director: PHIL : 1945 Requested By: Perry Addison Order Number: [id number] MD: Walt Caba Measurements Intervals [place] Rate: 76 P: 66 MS: 134 QRS: 13 QRSD: 96 T: 42 QT: 393 QTc: 442 Interpretive Statements Sinus rhythm Abnormal R-wave progression, early transition Minimal diffuse ST elevation, consider pericarditis Compared to ECG 03/15/2020 07:48:11 Prolonged QT interval no longer present ST (T wave) deviation still present Electronically Signed On 03-18-2020 9:30:33 CDT by Walt Caba [email or web address] <ELECTRONICALLY SIGNED> By: Walt Caba MD, [facility] 03/18/20929 3 3 Walt Caba MD, [facility] /EPI
--- NOTE | 2020-03-18 14:12 | NUR ---
Pt is progressing s/p CABG with anticipated dc to home tomorrow. Pt was evaluated for 5N stay but is doing well with therapy. RN,PT,and OT is recommeneded. Pt is aware and agreeable. She denies any HH agency preference. She did work with therapy and feels she will be able to get in and out of their truck. Pt's life partner updated by [facility] and he will be picking her up tomorrow. Referral called and faxed to [facility] . They can accept. Will ask the unit nurse to confirm dc with their oncall nurse tomorrow [phone] and fax her dc summary and instructions to [phone].
--- NOTE | 2020-03-18 17:50 | NUR ---
ASSESSMENT CHARTED. PT ALERT AND ORIENTED. PRN PAIN MED GIVEN FOR STERNUM PAIN WITH PARTIAL RELIEF. SHOWERED THIS MORNING WITH OT. LA DRESSING CHANGED. PLAN TO BE DISCHARGE IN AM WITH HH. SEE CASKET COVERER NOTE REGARDING AM DISCHARGE PLAN. WILL CONTINUE TO MONITOR.
--- NOTE | 2020-03-19 00:47 | NUR ---
ASSESSMENTS CHARTED, MEDS GIVEN CHARTED. POST OP DAY 4 INTO 5. REINSTRUCTED CORRECT USE OF IS. PATIENT GETTING IT UP TO 1000 REPEATEDLY. HAS NOT C/O NAUSE THIS SHIFT BUT HAS BELCHED FREQUENTLY AFTER SWALLOWING. PATIENT DID NOT SLEEP SOUNDLY DURING NIGHT. GOT UP ONCE AND WALKED 1 LAP AROUND THE UNIT. GOT OUT OF BED AND REPOSITIONED HERSELF IN THE BED. REQUESTED TYLENOL AT BEDTIME. FALL PRECAUTIONS IN PLACE DURING SHIFT. PLAN OF CARE IS TO GO HOME IN THE MORNING.
[2020-03-19 05:30] VITALS: BP 138/57
[2020-03-19 07:40] VITALS: BP 162/66
[2020-03-19 08:59] VITALS: BP 162/66
--- NOTE | 2020-03-19 10:54 | NUR ---
ASSESSMENT CHARTED. PT ALERT AND ORIENTED. VSS. AMBULATED X1 WITH PT. UP IN THE CHAIR THIS AM. LA DRESSING C/D/I. SEEN BY DR. JEREZ AND DR. SANCHEZ. ORDERS GIVEN TO DISCHARGE MA TO HOME. DISCHARGE INSTRUCTIONS GIVEN TO PT. PT VERBERLISED UNDERSTANDING. PT LEFT THE FACILITY ACCOMPANIED BY THE .
== END 2020-03-19 10:35 | disposition home health service (06) | DRG 233 ==
LOC: CATH 13:00 → 2N 15:54 → CATH 15:54 → 2N 20:36 → CATH 03-12 20:08 → 2N 03-12 20:12 → CATH 03-12 20:12 → 2N 03-12 20:25 → CATH 03-12 20:33 → 2N 03-12 20:33 → CATH 03-12 20:36 → 2N 03-12 20:37 → ICU 03-14 09:12 → 2N 03-14 09:12
PROVIDERS: Nurse Practitioner Adult Health; Physician Assistant; Surgery Vascular Surgery; ADMIT Internal Medicine Cardiovascular Disease
PROC: B2151ZZ Fluoroscopy of Left Heart using Low Osmolar Contrast (ICD-10-PCS; principal; 2020-03-11)
PROC: B2111ZZ Fluoroscopy of Multiple Coronary Arteries using Low Osmolar Contrast (ICD-10-PCS; principal; 2020-03-11)
PROC: 4A023N7 Measurement of Cardiac Sampling and Pressure, Left Heart, Percutaneous Approach (ICD-10-PCS; principal; 2020-03-11)
PROC: 30233R1 Transfusion of Nonautologous Platelets into Peripheral Vein, Percutaneous Approach (ICD-10-PCS; 2020-03-14)
PROC: 021009W Bypass Coronary Artery, One Artery from Aorta with Autologous Venous Tissue, Open Approach (ICD-10-PCS; 2020-03-14)
PROC: 02100Z9 Bypass Coronary Artery, One Artery from Left Internal Mammary, Open Approach (ICD-10-PCS; 2020-03-14)
PROC: 30233K1 Transfusion of Nonautologous Frozen Plasma into Peripheral Vein, Percutaneous Approach (ICD-10-PCS; 2020-03-14)
PROC: 06BQ4ZZ Excision of Left Saphenous Vein, Percutaneous Endoscopic Approach (ICD-10-PCS; 2020-03-14)
PROC: 5A1221Z Performance of Cardiac Output, Continuous (ICD-10-PCS; 2020-03-14)
PROC: 02H633Z Insertion of Infusion Device into Right Atrium, Percutaneous Approach (ICD-10-PCS; 2020-03-15)
DX: I25.118 Atherosclerotic heart disease of native coronary artery with other forms of angina pectoris (principal); I50.33 Acute on chronic diastolic (congestive) heart failure; D62 Acute posthemorrhagic anemia; I11.0 Hypertensive heart disease with heart failure; M19.90 Unspecified osteoarthritis, unspecified site; E78.00 Pure hypercholesterolemia, unspecified; I35.8 Other nonrheumatic aortic valve disorders; I35.0 Nonrheumatic aortic (valve) stenosis; E78.5 Hyperlipidemia, unspecified; I65.23 Occlusion and stenosis of bilateral carotid arteries; Z20.828 Contact with and (suspected) exposure to other viral communicable diseases; Z79.82 Long term (current) use of aspirin; Z79.899 Other long term (current) drug therapy; Z86.73 Personal history of transient ischemic attack (TIA), and cerebral infarction without residual deficits; Z88.6 Allergy status to analgesic agent
CPT/HCPCS: 10078; 10081; 10797; 47000; 47001; 47002; 47297; 48888; 50010; 50249; 50409; 50456; 50498; 50668; 51301; 52259; 52287; 52314; 53327; 53358; 54118; 55415; 56455; 56524; 56525; 56526; 56527; 56528; 56531; 56534; 56668; 56760; 56898; 57093; 57116; 57167; 62110; 62950; 65003; 65020; 65047; 65090; 65120; 65135

== ENCOUNTER → 2020-04-18 | Outpatient (CLI) | payer OTHER ==
[~2020-04-18] MED LIST changes: +PACERONE 200 M200 M1 PO; +TOPROL XL25 MG PO
== END ==
LOC: SJCVC 13:05
PROVIDERS: ATTEND Internal Medicine Cardiovascular Disease
DX: R94.31 Abnormal electrocardiogram [ECG] [EKG] (principal); I25.810 Atherosclerosis of coronary artery bypass graft(s) without angina pectoris; I10 Essential (primary) hypertension; E78.00 Pure hypercholesterolemia, unspecified; I35.0 Nonrheumatic aortic (valve) stenosis; R09.89 Other specified symptoms and signs involving the circulatory and respiratory systems; Z86.73 Personal history of transient ischemic attack (TIA), and cerebral infarction without residual deficits

== ENCOUNTER → 2020-06-29 | Outpatient (CLI) | payer OTHER | LOC: SJCVCIMAG 09:53 | PROVIDERS: ATTEND Internal Medicine Cardiovascular Disease | DX: I08.8 Other rheumatic multiple valve diseases (principal); I25.810 Atherosclerosis of coronary artery bypass graft(s) without angina pectoris; E78.5 Hyperlipidemia, unspecified; I10 Essential (primary) hypertension; Z95.1 Presence of aortocoronary bypass graft; Z79.899 Other long term (current) drug therapy ==

== ENCOUNTER → 2021-03-29 | Outpatient (CLI) | payer OTHER | LOC: SJCVC 10:36 | PROVIDERS: ATTEND Internal Medicine Cardiovascular Disease | DX: I25.10 Atherosclerotic heart disease of native coronary artery without angina pectoris (principal); I35.0 Nonrheumatic aortic (valve) stenosis; I10 Essential (primary) hypertension; E78.5 Hyperlipidemia, unspecified; I65.23 Occlusion and stenosis of bilateral carotid arteries; Z86.73 Personal history of transient ischemic attack (TIA), and cerebral infarction without residual deficits; Z95.5 Presence of coronary angioplasty implant and graft; Z79.82 Long term (current) use of aspirin; Z79.899 Other long term (current) drug therapy; Z88.5 Allergy status to narcotic agent ==

== ENCOUNTER → 2021-08-04 | Outpatient (CLI) | payer OTHER | LOC: SJCVCIMAG 10:30 | PROVIDERS: ATTEND Internal Medicine Cardiovascular Disease | DX: I65.23 Occlusion and stenosis of bilateral carotid arteries (principal); I25.810 Atherosclerosis of coronary artery bypass graft(s) without angina pectoris; I10 Essential (primary) hypertension; I35.0 Nonrheumatic aortic (valve) stenosis; E78.00 Pure hypercholesterolemia, unspecified; E78.5 Hyperlipidemia, unspecified; I25.10 Atherosclerotic heart disease of native coronary artery without angina pectoris; Z88.5 Allergy status to narcotic agent; Z86.73 Personal history of transient ischemic attack (TIA), and cerebral infarction without residual deficits; Z79.82 Long term (current) use of aspirin; Z79.899 Other long term (current) drug therapy; Z95.1 Presence of aortocoronary bypass graft ==

== ENCOUNTER 2021-08-24 06:25 | Day surgery (SDC) | payer OTHER ==
[~2021-08-24] VITALS: Ht 160 cm; Wt 69.0 kg
--- NOTE | ~2021-08-24 | O ---
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 PROCEDURE: Excision of tumor of left lower lid lateral canthus and cheek, with myocutaneous flap repair of defect. SURGEON: Mikel Fernández MD ENTRY LEVEL DRAFTER: None. ANESTHESIA: MAC. COMPLICATIONS: None. INDICATIONS FOR SURGERY: This pleasant 75-year-old woman has a nodular ulcerative mass in her lateral left lower lid that includes the left lateral canthus and extends onto her cheek. The lesion appears to be a basal cell carcinoma, which she has had previously. The current procedures are undertaken in order to remove the tumor in its histologic entirety as assessed by frozen sections and to repair the ensuing defect. Informed consent was obtained to include, but not limited to the potential risks for loss of vision, bleeding, infection, failure to improve the problem, the potential need for further surgery or treatment. DESCRIPTION OF PROCEDURE: The patient was taken to the operating room where 2% Xylocaine with epinephrine mixed with equal parts 0.75% Marcaine with Wydase was administered transcutaneously and transconjunctivally to the left lower lid, left lateral canthus, the infratemporal fossa and the cheek. The patient was subsequently prepped and draped in the usual sterile fashion. A fine tip skin marking pen was then utilized to outline the lesion with a margin of normal-appearing tissue surrounding the mass itself. The initial incision laterally took out the entire lateral canthus. The incision was made perpendicularly across the eyelid margin and drawn down to a point in the premalar space. The specimen was then oriented on a drawing for the waiting pathologist. Hemostasis was achieved in the field with monopolar cautery. The [address] [address] OPERATIVE REPORT Name: JAKUB HAINES Room #: [facility]-4 [facility]..#: [id number] Admission: 08/24/21 Attend Phys: Mikel Fernández MD Discharge: Date of : 47 Report #: [id number] pathologist snap froze that specimen and found that the margins were clear. She was unsure as to what the lesion represented and even as to whether it was malignant or benign. She did not feel it necessarily looked like a basal cell carcinoma. The defect in the left lower lid was 1.6 cm in width. The defect was inspected and the decision was made to use a myocutaneous flap to correct the defect. A relaxing incision was then made superolaterally and a myocutaneous flap developed to be rotated back in to correct the defect. Hemostasis was then re-achieved. The flap was then advanced and secured with multiple interrupted 5-0 Vicryl sutures deep. The reconstruction was done in such a manner as to draw the lid superotemporally in an elevated fashion to help limit her risk for long-term lid retraction. The eyelid margin was closed with interrupted 6-0 plain gut sutures. The subcutaneous structures and the skin was then closed more inferiorly with a row of buried 5-0 Vicryl sutures followed by a final skin closure of 6-0 plain gut sutures. The wounds were then cleaned and dressed with erythromycin ophthalmic ointment and the patient subsequently transported to the recovery area having tolerated the procedure well with no anesthetic or operative complications being noted. By: 0800 0809 Mikel Fernández MD /nt
[2021-08-24 07:30] VITALS: BP 140/52
--- NOTE | 2021-08-25 18:06 | PATH ---
[facility] [place] [address] PATHOLOGY RPT PROCEDURE Name: KEY GONZALES Room #: DEP [facility]..#: [id number] Admission: 08/24/21 Date of : 47 Discharge: 08/24/21 Report #: [id number] Path Case #: [id number] [facility] Accession Number: [id number] . 01 Material submitted: . eyelid - LESION LEFT LOWER EYE LID. Modifiers: left, lower . 01 Clinical history: . EXCISION LESION EYELID LEFT LOWER LID TUMOR . 02 Frozen section diagnosis: . FROZEN SECTION DIAGNOSIS: (By Dr. Autumn Bird) . FSA1. Skin, left lower lid, excision: - Margins free of invasive carcinoma at the margin in the sections examined. . These findings are discussed with Dr. Mikel Fernández in OR6 at [facility] and a written report is placed in the patient's chart. (IUV:pit; 08/24/2021) . FROZEN SECTION GROSS DESCRIPTION: The specimen is received fresh from the OR labeled with the patient's name, Key Gonzales and "lesion left lower eyelid frozen section" consists of an oriented inverted triangular specimen measuring 1.0 cm at the base approximately, and 1.0 cm from base to height. The specimen is oriented as medial, lateral and inferior. The lateral to inferior margin is inked black including the deep margin, the lower half of the medial to inferior margin is inked blue and the upper half of the medial to inferior margin is inked green. The superior end is additionally tagged with yellow ink. At this point the specimen is sectioned into three pieces and submitted entirely for frozen section as FSA1. This is subsequently submitted for permanent sections as A1. (IUV:pit; 08/24/2021) . Frozen section performed at [facility], [address] [place] [address] , [place] [address]. . IZV/QTP . 02 Diagnosis: Skin, lesion left lower eyelid, excision: - BASAL CELL CARCINOMA. - Margins of resection free of malignancy. (IUV:adri; 08/25/2021) [facility] 08/25/2021 [address] [address] PATHOLOGY RPT PROCEDURE Name: KEY GONZALES Room #: DEP [facility] Marisela#: [id number] Admission: 08/24/21 Date of : 47 Discharge: 08/24/21 Report #: [id number] Path Case #: [id number] . 02 Electronically signed: . Autumn Bird MD, Pathologist NPI- [id number] . 01 Gross description: . SEE FROZEN SECTION FOR GROSS DESCRIPTION /QTP 08/24/2021 1442 Local . 02 Pathologist provided ICD-10: C44.1192 . 02 CPT . 409637, [id number] Specimen Comment: A courtesy copy of this report has been sent to [phone] Specimen Comment: Report sent to Performed at: [address], [place] [id number] MD Juni Arce MD Phone: [phone] Performed at: [address] [id number] MD Autumn Bird MD Phone: [phone]
== END 2021-08-24 06:40 | disposition home or self-care (01) ==
LOC: OR 06:25 → TBA 06:29 → OR 06:40
PROVIDERS: ATTEND Ophthalmology
DX: C44.1192 Basal cell carcinoma of skin of left lower eyelid, including canthus (principal); I10 Essential (primary) hypertension; I25.10 Atherosclerotic heart disease of native coronary artery without angina pectoris; E78.5 Hyperlipidemia, unspecified; Z98.890 Other specified postprocedural states; Z79.899 Other long term (current) drug therapy; Z86.73 Personal history of transient ischemic attack (TIA), and cerebral infarction without residual deficits; Z98.51 Tubal ligation status; Z95.1 Presence of aortocoronary bypass graft; Z88.8 Allergy status to other drugs, medicaments and biological substances
CPT/HCPCS: 50010; 50101; 50386; 50398; 51636; 56528; 56531; 62110; 62850; 70005